=== PATIENT | male | born 1975 | race Caucasian/White ===

== ENCOUNTER → 2022-10-03 | Day surgery (SDC) | payer BC, OTHER ==
[~2022-10-03] MED LIST: DEXAMETHASONE SOD PHOSPHATE 4 MG/ML 1 ML VIAL IVP ONE; GLYCOPYRROLATE 0.2 MG/ML 2 ML VIAL ONE; HYDROmorphone 0.5 MG/0.5 ML SYRINGE IVP ONE; IOPAMIDOL-370 50ML BTL IRRIGATION ONE; KETOROLAC 15 MG/ML 1 ML VIAL IVP ONE; LACTATED RINGERS 1,000 ML IV ONE; MIDAZOLAM 2 MG/2 ML VIAL ONE; NEOSTIGMINE 1 MG/ML 10 ML VIAL ONE; ONDANSETRON 4 MG/2 ML VIAL IVP ONE; ONDANSETRON 4 MG/2 ML VIAL ONE; PROPOFOL 10 MG/ML 20 ML VIAL IV ONE; ROCURONIUM 10 MG/ML (5 ML VIAL) IV ONE; SUCCINYLCHOLINE CHLORIDE 200 MG/10 ML VIAL IV ONE; ceFAZolin 3 GM in SODIUM CHLORIDE 0.9% 100 ML IVPB PRN; fentaNYL (PF) 50 MCG/ML 2 ML AMP ONE
--- NOTE | 2022-10-03 12:27 | XR ---
EXAMINATION TYPE: XR KUB DATE OF EXAM: 10/03/2022 HISTORY: Pain Comparison: None.Single KUB is submitted for interpretation. Findings: Right renal calculi: None Visualized. Right ureteral calculi: None Visualized. Left renal calculi: None Visualized. Left ureteral calculi: Proximal left ureteral calculus measuring 6.5 m in transverse dimension at th e L2 level. Pelvic calcifications: Multiple pelvic phleboliths noted. Bowel gas pattern is unremarkable. No free air. No mass effects. IMPRESSION: 1. Proximal left ureteral calculus measuring 6.5 m in transverse dimension at the L2 level.
--- NOTE | 2022-10-03 14:52 | P.GSHP ---
History of Present Illness H&P Date: 10/03/22 Chief Complaint: Left renal colic The patient is a 47-year-old male with no prior history of urolithiasis. On 09/29/2022 he experienced left flank pain radiating to the abdomen, associated with nausea and vomiting. He presented to the ER. CT scan showed mild left hydronephrosis due to a 5 x 9 mm left UPJ calculus. This additional small left renal calculi were seen. - Constitutional Constitutional: Denies chills, Denies fever - Gastrointestinal Gastrointestinal: Reports nausea, Reports vomiting - Genitourinary (Male) Genitourinary: Reports flank pain, Reports kidney stones, Denies dysuria, Denies hematuria Past Medical History Additional Past Medical History / Comment(s): woke up with pain lower back radia mindi to front. no pain on urination stream less full. Seen in ER Kidney stone on the left. occasional heartburn. 6 months ago UTI - took some antibiotics he had at home not seen by . 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 EGD, Past Anesthesia/Blood Transfusion Reactions: No Reported Reaction Additional Past Anesthesia/Blood Transfusion Reaction / Comment(s): no blood transfusions Smoking Status: Former smoker - Past Family History Mother Family Medical History: CVA/TIA Father History Unknown: Yes Medications and Allergies Home Medications Medication Instructions Recorded Confirmed Type HYDROcodone/APAP 5-325MG [Karval 1 tab PO DIRECTED PRN 10/01/22 10/03/22 History 5-325] Ibuprofen [Motrin] 600 mg PO DIRECTED PRN 10/01/22 10/03/22 History Ketorolac [Toradol] 10 mg PO DIRECTED 10/01/22 10/03/22 History Ondansetron Odt [Zofran Odt] 4 mg PO DIRECTED PRN 10/01/22 10/03/22 History Tamsulosin [Flomax] 0.4 mg PO DIRECTED 10/01/22 10/03/22 History Unk Fiber Tablet 2 tab PO DAILY PRN 10/01/22 10/03/22 History Allergies Allergy/AdvReac Type Severity Reaction Status Date / Time No Known Allergies Allergy Verified 10/03/22 13:23 Surgical - Exam Vital Signs Temp Pulse Resp BP Pulse Ox 98 F 83 16 168/92 96 10/03/22 13:21 10/03/22 13:21 10/03/22 13:21 10/03/22 13:21 10/03/22 13:21 - General well developed, well nourished, no distress - Neck no masses, trachea midline - Respiratory normal respiratory effort - Abdomen Abdomen: soft, tender (Left lower quadrant tenderness), no guarding, no rigid, no rebound Hernia: umbilical - Genitourinary normal penis with no external lesions, testicles non-tender - Psychiatric oriented to time, oriented to person, oriented to place, speech is normal, memory intact Results - Imaging Abdominal x-ray: report reviewed, image reviewed CT scan - abdomen: report reviewed, image reviewed Assessment and Plan (1) Calculus of ureter Current Visit: Yes Status: Acute Code(s): N20.1 - CALCULUS OF URETER SNOMED Code(s): 55451331 (2) Hydronephrosis with renal and ureteral calculous obstruction Current Visit: Yes Status: Acute Code(s): N13.2 - HYDRONEPHROSIS WITH RENAL AND URETERAL CALCULOUS OBSTRUCTION SNOMED Code(s): 232411449 Plan: The patient was offered the options of medical expulsion therapy, extracorporal shockwave lithotripsy (ESWL), and ureteroscopy with laser lithotripsy and possible stone basketing. He has elected to undergo the latter. The procedure has been reviewed in detail with the patient, and he has been made aware of potential risks which include anesthesia, bleeding, infection, inability to successfully remove the calculus, and ureteral injury. He is aware of the need for a ureteral stent postoperatively.
--- NOTE | 2022-10-03 19:38 | P.OP ---
Date of Procedure: 10/03/22 Preoperative Diagnosis: Left ureteral calculus Postoperative Diagnosis: Same Procedure(s) Performed: Cystoscopy, left retrograde pyelogram, left ureteroscopy with Holmium laser lithotripsy, left ureteral stent insertion Anesthesia: SIMIA Surgeon: Carlos Portillo Estimated Blood Loss (ml): 0 IV fluids (ml): 500 Pathology: none sent Condition: stable Disposition: PACU Indications for Procedure: The patient is a 47-year-old male with no prior history of urolithiasis. On 09/29/2022 he experienced left flank pain radiating to the abdomen, associated with nausea and vomiting. He presented to the ER. CT scan showed mild left hydronephrosis due to a 5 x 9 mm left UPJ calculus. This additional small left renal calculi were seen. Operative Findings: Left proximal ureteral calculus, fragmented completely. Description of Procedure: The patient was taken to the operating room and placed in the dorsolithotomy position, with legs supported in Ascencion stirrups. The external genitalia was prepped and draped sterilely. The 30 lens was used to introduce the 21-Moroccan Chopra cystoscopic sheath through the urethra and into the bladder under direct vision. The prostatic urethra showed evidence of mild lateral lobe enlargement. The bladder was examined in its entirety. Both ureteral orifices were normal anatomic location and configuration, and clear urine effluxed from both. No tumors or foreign bodies were seen. Using a 10-Moroccan cone-tipped catheter, a left retrograde pyelogram was performed in the standard fashion. The ureter appeared normal. The calculus was seen at the ureteropelvic junction. A small amount of contrast passed beyond the calculus, and hydronephrosis was noted. A 0.038 inch Glidewire was passed through the cystoscope. The ureteral orifice was cannulated, and the Glidewire was advanced up to the renal pelvis. The cystoscope was removed, and an 11/13-Moroccan ureteral access catheter was passed over the wire, up to the proximal ureter. The [employer] flexible ureteroscope was then passed through the ureteral access catheter sheath and advanced under direct vision, up to the left renal pelvis where the calculus was identified. The 272 micron Holmium l aser probe was passed through the ureteroscope, and lithotripsy was performed. The calculus refluxed into an upper pole calyx, where the majority of lithotripsy was performed. The calculus fragmented readily, likely composed of calcium oxalate dihydrate or apatite. A combination of dusting and popcorn he was utilized, as the calculus was reduced to powder. The uteroscope was slowly withdrawn under direct vision. There was no evidence of ureteral trauma. The Glidewire was passed through the ureteral access catheter sheath, which was removed. The Glidewire was then backloaded into the cystoscope, which was passed into the bladder. A 26 cm, 4.8-Moroccan double-J ureteral stent was placed over the wire. Proper stent positioning was verified fluoroscopically and endoscopically. The bladder was emptied and the cystoscope removed. The string attached to the stent was secured to the penis using a Tegaderm dressing. The patient tolerated the procedure well and was taken to the recovery room in stable condition. JOANN LING Report: Procedure Acuity: Urgent Stone Size and Location: 5 x 9 mm, left proximal ureter Ureteral Dilation: No Ureteral Access Sheath Used: Yes Stone Sent for Analysis: No All Stones/Fragments Were Removed with a Basket: No Complications: No Preoperative Antibiotics Given: Yes Stent Placed: Yes If Stent Placed, Was String Left Attached: Yes If Stent Placed, When is it to be Removed: 1 week Discharge Medications: Tamsulosin, Toradol
[2022-10-03 19:53] VITALS: TEMP 99.2
[2022-10-03 20:25] VITALS: RESP 16
[2022-10-03 20:55] VITALS: BP 150/78; PULSE 94
--- NOTE | 2022-10-03 21:25 | FL ---
EXAMINATION TYPE: FL guidance operating room DATE OF EXAM: 10/03/2022 CLINICAL HISTORY: Left ureteral calcification TECHNIQUE: Fluoroscopy. COMPARISON: None. FINDINGS: Fluoroscopic guidance was provided during procedure performed by Dr. Portillo. A total of s econds of fluoroscopic time was utilized during the procedure and 3 spot images was acquired. IMPRESSION: As Above.
== END ==
LOC: OR 12:04
PROVIDERS: ATTEND Urology
DX: N13.2 Hydronephrosis with renal and ureteral calculous obstruction (principal); Z79.1 Long term (current) use of non-steroidal anti-inflammatories (NSAID); Z87.442 Personal history of urinary calculi; Z87.891 Personal history of nicotine dependence
CPT/HCPCS: 74018; 52356; C2625; C1758; J2250; J0330; J1100; J2710; J0690; J2405; J3010; J1885; J2704; J1170; Q9967